=== PATIENT | male | born 1945 | race Caucasian/White ===

== ENCOUNTER → 2017-05-17 | Day surgery (SDC) | payer MEDICARE, OTHER ==
--- NOTE | 2017-05-17 15:34 | RADIOLOGY REPORT (SQ) ---
EXAM DESCRIPTION: FLUORO/NEEDLE PLACEMENT; ARTHRO SHOULDER INJECTION COMPLETED DATE/TIME: 05/17/2017 3:00 pm REASON FOR STUDY: ANTERIOR DISLOCATION OF LEFT HUMERUS, INITIAL ENC (S43.015A) S43.015A ANTERIOR DI SLOCATION OF LEFT HUMERUS, INITIAL ENCOU COMPARISON: None. FLUOROSCOPY TIME: 21 seconds 2 digital C-arm images saved to PACS. LIMITATIONS: None. PROCEDURE: Procedure, risks, benefits and alternatives explained to patient who then gave written co nsent. The posterior left shoulder was marked and a time out was called for correct procedure verific ation. Posterior entry site marked using fluoroscopic guidance. Shoulder prepped and draped using s terile technique. Local anesthesia achieved using 6 mL of 1% lidocaine injection. 22 gauge spinal n eedle introduced into the joint space under direct fluoroscopic visualization. Non-ionic contrast ins tilled to confirm intra-articular position. Dilute gadolinium solution then injected. Needle removed and entry site covered with sterile bandage. No immediate complications noted. TECHNIQUE: Digital images acquired during fluoroscopy and stored on PACS. Patient immediately take n to the MR suite for additional imaging. INJECTION LOCATION: Posterior left shoulder glenohumeral joint CONTRAST TYPE AND AMOUNT: 1 mL of Isovue-300 injected to confirm intra-articular needle placement fol lowed by 10 mL of dilute ProHance gadolinium IMPRESSION: SUCCESSFUL NEEDLE PLACEMENT AND INJECTION FOR LEFT SHOULDER MR ARTHROGRAM USING POSTERIO R APPROACH. COMMENT: Quality ID [id number]: Final reports for procedures using fluoroscopy that document radiation exp osure indices, or exposure time and number of fluorographic images (if radiation exposure indices are not available) TECHNICAL DOCUMENTATION: JOB ID: [id number] [employer]- All Rights Reserved
--- NOTE | 2017-05-17 15:44 | RADIOLOGY REPORT (SQ) ---
EXAM DESCRIPTION: MRI LT UPPER JOINT WITH COMPLETED DATE/TIME: 05/17/2017 3:08 pm REASON FOR STUDY: ANTERIOR DISLOCATION OF LEFT HUMERUS, INITIAL ENC (S43.015A) S43.015A ANTERIOR DI SLOCATION OF LEFT HUMERUS, INITIAL ENCOU COMPARISON: None. TECHNIQUE: Left shoulder images acquired and stored on PACS. Oblique coronal, oblique sagittal, and axial imaging to include fat sensitive sequences as T1, water sensitive sequences as FST2/STIR, and c ontrast sensitive sequences as FST1. LIMITATIONS: None. FINDINGS: JOINT DISTENTION: Adequate distention for interpretation. BONE MARROW AND CORTEX: A subacute Hill-Sachs deformity is present in the left humeral head posterior ly on axial image 7, with mild marrow edema. AC JOINT: Type II acromion. Very mild bony spurring at the AC joint. There is minimal edema in the a cromion. GLENOHUMERAL JOINT: Humeral head is high riding with respect to the bony glenoid, abutting the unders urface of the acromion. ROTATOR CUFF: Full-thickness tear of the supra and infraspinatus tendons with fatty atrophy of the mu scles wall sagittal T1 weighted images. There is diffuse edema in the subscapularis, with muscle str ain and high signal in the muscle itself on fat-sat T2 images. LABRUM AND BICEPS LABRAL COMPLEX: The long head biceps tendon is displaced medially out of the bicipi alli groove. There is a tear of the superior labrum extending into the posterosuperior labrum, these changes are best shown on axial images 7 through 15. INFERIOR LABRAL COMPLEX: Bony glenoid and labrum intact. IGHL intact without thickening or tear. No p aralabral cysts. ADJACENT SOFT TISSUES: No masses or nodes. OTHER: No other significant finding. 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 Superior labral tear extendi ng posteriorly TECHNICAL DOCUMENTATION: JOB ID: [id number] [employer]- All Rights Reserved
== END ==
LOC: EDSTATUS 12:14 → RAD 13:30
PROVIDERS: ATTEND Family Medicine
PROC: BP09ZZZ Plain Radiography of Left Shoulder (ICD-10-PCS; principal; 2017-05-17)
DX: S43.015A Anterior dislocation of left humerus, initial encounter (principal); X58.XXXA Exposure to other specified factors, initial encounter
CPT/HCPCS: 73222; 77002; 23350; A9576